=== PATIENT | female | born 1990 | race Caucasian/White ===

== ENCOUNTER 2021-08-27 18:32 | Emergency (ER) | payer MEDICAID, SELFPAY ==
--- NOTE | ~2021-08-27 | CT_ITS ---
EXAMINATION: CT HEAD WITHOUT CONTRAST CLINICAL INFORMATION: Migraine. Right facial and arm tingling. COMPARISON: None TECHNIQUE: Contiguous axial imaging was performed from the skull base to vertex without intravenous administration of contrast. This CT examination was performed using dose optimization techniques as appropriate, variously including the following: *Automated exposure control *Adjustment of mA and/or kV according to patient size (this includes techniques or standardized protocols for targeted exams where dose is matched to indication/reason for exam; i.e. extremities or head) *Use of iterative reconstruction technique DLP: 566 mGy-cm FINDINGS: There is no evidence of acute intracranial hemorrhage or territorial infarction. No abnormal mass effect or midline shift is seen. Lynn to white matter differentiation is well preserved. No extra-axial fluid collections are identified. The ventricles are normal in size. There is no abnormal attenuation within the brain parenchyma. The osseous structures and soft tissues are normal. The mastoid air cells and visualized portions of the paranasal sinuses are well aerated. CT/CT head/brain wo con IMPRESSION: No acute intracranial pathology.
[2021-08-27 20:44] VITALS: BP 131/87; PULSE 77; RESP 16; TEMP 37.1; O2SAT 97; BMI 29.7
--- NOTE | 2021-08-27 23:28 | ED.HA ---
HPI - Headache General Chief Complaint: Headache Stated Complaint: headache h/o migraines Time Seen by Provider: 08/27/21 23:22 Source: patient Mode of arrival: ambulatory Limitations: language barrier History of Present Illness HPI Narrative: 31-year-old female presents with left-sided migraine for 1 week accompanied with nausea, facial and hand tingling on the left side. States that she normally has migraines on a regular basis however this facial and hand tingling is new. She has been taking her medications with poor affect. MD elicited complaint: headache and migraine Pertinent past history: migraines Onset (ago): week(s) (1) Onset description: gradually Location: left Severity: severe Pain scale (0-10): 9 Quality & Timing: throbbing, constant, progressively worsening and different than previous headaches Exacerbating factors: none Relieving factors: nothing Context: occurred at rest Associated symptoms: tingling and numbness Treatments prior to arrival: acetaminophen, ibuprofen and migraine medication Related Data Previous Rx's Medication Instructions Recorded ywwrokword-fpdsofugsjtza-nobrkzxd 1 cap PO Q4-6H PRN #10 cap 08/28/21 50 mg-300 mg-40 mg capsule (Fioricet) Allergies Allergy/AdvReac Type Severity Reaction Status Date / Time No Known Allergies Allergy Verified 08/27/21 20:48 Review of Systems Review of Systems: Constitutional: No Fever, No Chills, positive headache ENT/Mouth: No Ear Pain, No Hoarseness, No sore throat Eyes: No Eye Pain, No Swelling, No Redness, No Foreign Body Cardiovascular: No Chest Pain, No SOB Respiratory: No Cough, No Dyspnea Gastrointestinal: No Nausea, No Vomiting, No Diarrhea, No abdominal Pain Genitourinary: No Dysuria, No Hematuria Musculoskeletal: positive joint pain, No Myalgias, No Joint Swelling Skin: No Skin lacerations, No rash Neuro: No Weakness, positive Numbness, positive Paresthesias, No Loss of Consciousness, No Dizziness, positive Headache Psych: No Anxiety/Panic, No Depression Heme/Lymph: no easy bruising, no Lymphadenopathy Endocrine: No Polyuria, No Polydipsia Yes all other systems are reviewed and are negative PMFSH Past Medical History Attestation statement: The following information was validated with the patient. Source: old records reviewed Medical History Migraines Social History Social History Advance Directives: No Patient : No Physical Exam Vital Signs: Vital Signs: Last Vital Signs Temp 98.1 F 08/28/21 00:53 Pulse 62 08/28/21 00:53 Resp 12 08/28/21 00:53 BP 119/71 08/28/21 00:53 Pulse Ox 100 08/28/21 00:53 BMI result Body Mass Index 29.7 Appearance: Alert. Oriented X3. No acute distress. Eyes: Pupils equal, round and reactive to light. Sclera nonicteric. ENT: Pharynx normal. Neck: Normal inspection. Neck supple. No vertebral tenderness. No nuchal rigidity. CVS: Normal heart rate and rhythm. Pulses normal. Respiratory: No respiratory distress. Breath sounds normal. Abdomen: Soft and nontender. Skin: Skin warm and dry. Normal skin color. Normal skin turgor. Extremities: No lower extremity edema. Moves all extremities against resistance. Gait well-balanced well coordinated. Neuro: No motor deficit. No sensory deficit. Cranial nerves 2-12 intact. NIH Stroke Scale Internal: Initial- Upon Arrival Level of Consciousness: Alert Level of Consciousness Questions: Answers both questions correctly Level of Consciousness Commands: Performs both tasks correctly Best Gaze: Normal Visual: No visual loss Facial Palsy: Normal Motor Arm (Right): No drift Motor Arm (Left): No drift Motor Leg (Right): No drift Motor Leg (Left): No drift Limb Ataxia: Absent Sensory: Normal Best Language: No aphasia Dysarthia: Normal Extinction and Inattention: No abnormality Score: 0 Course Course Course Narrative: 31-year-old female presents with 1 week of migraine. Has been taking her medications Topamax and ndmh-spi-fkyladh medications with poor effect. States that she has some left-sided facial and left arm tingling and numbness but has no focal neural deficits. NIH stroke scale is 0. States that this is new for her. Patient is afebrile. No nuchal rigidity or indication of meningitis. Negative Romberg. Patient is afebrile and appears nontoxic. Focal neural deficits. Will order CT scan of head. Will order UA, U preg, antiemetic, pain management with Toradol and Imitrex. 00:13 urinalysis negative, U preg negative. 00:20 CT scan head negative for acute findings requiring emergent intervention. Will discharge home with prescription for Fioricet. Patient does not recall the name of her primary care physician but does understand that she must follow-up with them. I did refer to neurology for persistent migraines. parts interpreter utilized for all correspondence. Google translate utilized for discharge instructions. Patient verbalized understanding of and agrees to plan of care to discharge home. Verbalized understanding of signs and symptoms indicating need for emergent intervention MDM - Headache Differential Diagnosis Differential diagnosis: Likely migraine, tension headache, subarachnoid hemorrhage, headache and sinusitis Medical Records Attestation: I reviewed the patient's medical records. Lab Data Attestation: I reviewed the patient's lab results. Labs: Lab Results 08/27/21 08/27/21 08/27/21 Range/Units 23:41 23:41 23:55 Urine Color YELLOW Urine Appearance HAZY Urine pH 5.5 (5.0-8.0) Ur Specific [place] 1.025 (1.005-1.025) Urine Protein NEG (NEG-TRACE) MG/DL Urine Glucose (UA) NEG (NEG) MG/DL Urine Ketones NEG (NEG) MG/DL Urine Blood NEG (NEG) Urine Nitrite NEG (NEG) Ur Leukocyte Esterase NEG (NEG) Urine Test NEGATIVE (NEGATIVE) Influenza Type A (PCR) NEGATIVE (Negative) Influenza Type B (PCR) NEGATIVE (Negative) RSV RNA Qual (PCR) NEGATIVE (Negative) SARS-CoV-2 RNA (RT-PCR) NEGATIVE (Negative) Imaging Data CT scan - head: Attestation: I personally reviewed and interpreted this imaging study as follows: Radiologist's impression: EXAMINATION: CT HEAD WITHOUT CONTRAST CLINICAL INFORMATION: Migraine. Right facial and arm tingling.? COMPARISON: None TECHNIQUE: Contiguous axial imaging was performed from the skull base to vertex without intravenous administration of contrast. This CT examination was performed using dose optimization techniques as appropriate, variously including the following: *Automated exposure control *Adjustment of mA and/or kV according to patient size (this includes techniques or standardized protocols for targeted exams where dose is matched to indication/reason for exam; i.e. extremities or head) *Use of iterative reconstruction technique DLP: 566 mGy-cm FINDINGS: There is no evidence of acute intracranial hemorrhage or territorial infarction. No abnormal mass effect or midline shift is seen. Lynn to white matter differentiation is well preserved. No extra-axial fluid collections are identified. The ventricles are normal in size. There is no abnormal attenuation within the brain parenchyma. The osseous structures and soft tissues are normal. The mastoid air cells and visualized portions of the paranasal sinuses are well aerated. ? CT/CT head/brain wo con IMPRESSION: No acute intracranial pathology. Discharge Plan Discharge Clinical Impression: Migraine Patient Disposition: Home, Self-Care Instructions: Migraine Headache (ED) Additional Instructions: Le evaluaron por migra?a. Le recetamos Fioricet. Novi omi medicamento seg?n las indicaciones. Seguimiento con el m?dico de atenci?n primaria esta semana. Puede considerar la consulta de Neurolog?a si las migra?as persisten. La tomograf?a computarizada de la devi es negativa para hallazgos agudos que requieren alexis intervenci?n urgente. Edgar por elegir omi departamento de emergencias para al evaluaci?n. Por favor, lucie un seguimiento con el m?dico de atenci?n primaria seg?n sea necesario. Regrese al departamento de emergencias por cualquier s?ntoma nuevo, preocupante o que empeore. You were evaluated for migraine headache. We prescribed Fioricet. Please take this medication as directed. Follow-up with primary care physician this week. You may consider Neurology consult if migraines persist. CT scan of head is negative for acute findings requiring emergent intervention. Thank you for choosing this emergency department for evaluation. Please follow-up with primary care physician as needed. Return to the emergency department for any new, concerning, or worsening symptoms. Prescriptions: New ixzbjbbqnn-zwpgcjpcwqipv-momd [Fioricet] 50-300-40 mg capsule 1 cap PO Q4-6H PRN (Reason: migraine headache) Qty: 10 0RF Referrals: Aura Miranda MD [Physician] - (Persistent migraines)
[2021-08-27 23:46] LABS: Appearance Urine HAZY; Color Urine YELLOW; Glucose Urine UA NEG (NEG); Leukocyte Esterase Urine NEG (NEG); Nitrite Urine NEG (NEG); PH 5.5 (5.0-8.0); Specific Gravity - Urine 1.025 (1.005-1.025); Urine Blood NEG (NEG); Urine Ketones NEG (NEG); Urine Protein NEG (NEG-TRACE)
[2021-08-27] MEDS: ondansetron HCL 4 MG/2 ML VIAL IVPUSH (23:46)
[2021-08-27 23:48] LABS: UPreg QC Valid YES; Urine Pregnancy NEGATIVE (NEGATIVE)
[2021-08-27] MEDS: diphenhydrAMINE HCL 50 MG/ML VIAL 12.5 MG IVPUSH (23:48)
[2021-08-27] MEDS: Ketorolac Tromethamine 30 MG/ML VIAL IVPUSH (23:49)
[2021-08-27] MEDS: SUMAtriptan succinate 6 MG/0.5 ML VIAL SUBCUT (23:53)
[2021-08-28 00:35] LABS: Influenza A PCR NEGATIVE (Negative); Influenza B PCR NEGATIVE (Negative); Resp Syncy Virus RNA Qual PCR NEGATIVE (Negative); SARS COV2 PCR INHOUSE NEGATIVE (Negative)
[2021-08-28 00:53] VITALS: BP 119/71; PULSE 62; RESP 12; TEMP 36.7; O2SAT 100
== END 2021-08-28 01:18 | disposition home or self-care (01) ==
PROVIDERS: Nurse Practitioner Family; Emergency Provider Emergency Medicine
DX: G43.909 Migraine, unspecified, not intractable, without status migrainosus (principal); Z20.822 Contact with and (suspected) exposure to COVID-19
CPT/HCPCS: 0241U; 70450; 81003; 81025; 96372; 96374; 96375; 99283; 99284; J1200; J1885; J2405; J3030

== ENCOUNTER 2021-10-25 14:23 | Outpatient (REF) | payer MEDICAID, SELFPAY ==
[2021-10-25 18:44] LABS: CT PCR NOT DETECTED (Not Detect.); NG PCR NOT DETECTED (Not Detect.)
[2021-10-26 09:52] LABS: BV Int Neg Control Negative (Negative); BV Int Pos Control Positive (Positive)
[2021-11-05 11:02] LABS: HPV 16 RNA NOT DETECTED (NOT DETECTED); HPV mRNA E6/E7 rflx Detected (Not Detected)
== END 2021-10-25 14:24 | disposition home or self-care (01) ==
LOC: HO.LAB 14:23
PROVIDERS: Visit Provider Advanced Practice Midwife
DX: Z01.419 Encounter for gynecological examination (general) (routine) without abnormal findings (principal); Z11.3 Encounter for screening for infections with a predominantly sexual mode of transmission; Z11.51 Encounter for screening for human papillomavirus (HPV)
CPT/HCPCS: 87480; 87491; 87510; 87591; 87624; 87625; 87660; 88142

== ENCOUNTER 2022-04-24 21:49 | Emergency (ER) | payer MEDICAID, SELFPAY ==
--- NOTE | 2022-04-24 | ECG_ITS ---
Test Reason : CHEST PAIN Blood Pressure : / mmHG Vent. Rate : 072 BPM Atrial Rate : 072 BPM P-R Int : 138 ms QRS Dur : 094 ms QT Int : 380 ms P-R-T Axes : 061 038 099 degrees QTc Int : 416 ms Normal sinus rhythm with sinus arrhythmia T wave abnormality, consider anterolateral ischemia Abnormal ECG No previous ECGs available Referred By: Generic ED Physician Electronically Signed By:NICOLE BAUER MD
--- NOTE | ~2022-04-24 | XR_ITS ---
EXAMINATION: XR CHEST CLINICAL INFORMATION: Chest pain COMPARISON: None TECHNIQUE: Frontal view of the chest was obtained. FINDINGS: Normal appearance of the cardiomediastinal structures. No effusions or pneumothoraces. No focal pulmonary consolidation. Normal pattern of pulmonary vasculature. Presumed cholecystectomy clips noted in the right upper abdominal quadrant. XR/XR chest 1V IMPRESSION: No acute cardiopulmonary abnormalities. Lungs clear.
[2022-04-24 21:58] VITALS: BP 142/84; PULSE 68; RESP 16; TEMP 36.4; O2SAT 99; BMI 29.9
[2022-04-24 22:55] LABS: MANUAL DIFF FLAG NO
[2022-04-24 22:57] LABS: Basophils Percent Auto 0.3 % (0-2); Eosinophils Percent Auto 0.4 % (0-4); Hemoglobin 12.9 g/dl (12.0-16.0); Imm Gran Abs Auto 0.02 X10*3/uL (0.00-0.03); Imm Gran Pct Auto 0.2 % (0.0-0.4); Lymphocytes Absolute Auto 1.3 X10*3/uL (1.2-4.9); Lymphocytes Percent Auto 14.6 % (20-40); Mean Corpuscular HGB Conc 30.7 g/dl (31.0-35.0); Mean Corpuscular Hemoglobin 25.9 pg (27.0-33.0); Mean Corpuscular Volume 84.3 fL (80.0-98.0); Monocytes Absolute Auto 0.5 X10*3/uL (0.1-1.2); Monocytes Percent Auto 5.2 % (2-11); Neutrophils Absolute Auto 7.1 x10*3/uL (2.0-8.3); Neutrophils Percent Auto 79.3 % (45-73); Platelet Count 340 X10*3/uL (160-400); Red Blood Count 4.98 X10*6/uL (4.20-5.50); Red Cell Distribution Width 15.9 % (11.0-16.0)
[2022-04-24 23:13] LABS: Alanine Aminotransferase 76 U/L (0-31); Albumin Level 4.2 g/dL (3.5-5.0); Alkaline Phosphatase 95 U/L (39-117); Anion Gap 15 (12-20); Aspartate Amino Transferase 109 U/L (5-31); Blood Urea Nitrogen 12 mg/dL (9-16); Calcium 9.1 mg/dL (8.4-10.2); Carbon Dioxide 21 mmol/L (22-29); Chloride 108 mmol/L (96-108); Creatinine Clr Calc Pharmacy 118.3; Estimated Glomerular Filt Rate > 60; Glucose Random 97 mg/dL (60-115); Potassium 3.5 mmol/L (3.3-5.1); Sodium 140 mmol/L (135-145); Total Protein 7.3 g/dL (6.5-8.0)
[2022-04-24 23:18] LABS: Troponin-I High Sensitivity < 3.5 ng/L (<3.5-17.0)
[2022-04-25 00:08] VITALS: TEMP 36.6
[2022-04-25 00:46] VITALS: BP 119/67; PULSE 66; RESP 16; TEMP 36.5; O2SAT 98
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
[2022-04-25 01:33] VITALS: BP 120/73; PULSE 74; RESP 16; TEMP 36.4; O2SAT 98
[2022-04-25 01:37] LABS: Bilirubin Total 0.7 mg/dL (0.0-1.0)
[2022-04-25] MEDS: Ibuprofen 600 MG TABLET PO (01:50)
[2022-04-25 01:51] LABS: D Dimer High Sensitivity < 150 NG/ML
--- NOTE | 2022-04-25 02:02 | PC.NURSE ---
Discharge instructions reviewed with pt. Pt verbalizes understanding.
[2022-04-25 02:04] LABS: Troponin-I High Sensitivity < 3.5 ng/L (<3.5-17.0)
== END 2022-04-25 02:03 | disposition home or self-care (01) ==
PROVIDERS: Emergency Provider Emergency Medicine
DX: R07.89 Other chest pain (principal); F41.1 Generalized anxiety disorder; F43.0 Acute stress reaction; Z79.899 Other long term (current) drug therapy
CPT/HCPCS: 36415; 71045; 80053; 84484; 85025; 85379; 93005; 99283; 99284

== ENCOUNTER 2022-08-01 13:24 | Outpatient (REF) | payer MEDICAID, SELFPAY ==
--- NOTE | 2022-08-01 09:15 | EMG_ITS ---
Left tibial and peroneal motor studies were performed. Left superficial peroneal and sural sensory studies were performed. Tibial H-reflex was obtained. Left median and ulnar motor and sensory studies were performed. Radial and sensory study was performed and paraspinal muscles were tested in left cervical and lumbar areas. IMPRESSION: Other than mild left superficial peroneal sensory neuropathy, no significant abnormality noted on this study. MD LACIE Swift/BESSY / [id number]
== END 2022-08-01 13:25 | disposition home or self-care (01) ==
LOC: HO.NEURO 13:24
PROVIDERS: PCP Registered Nurse; Visit Provider Registered Nurse
DX: R20.0 Anesthesia of skin (principal); R20.2 Paresthesia of skin
CPT/HCPCS: 95886; 95912

== ENCOUNTER 2022-09-11 08:30 | Emergency (ER) | payer MEDICAID, SELFPAY ==
[2022-09-11 08:47] VITALS: BP 135/86; PULSE 75; RESP 12; TEMP 36.7; O2SAT 100; BMI 25.8
--- NOTE | 2022-09-11 09:32 | ED_ITS ---
HPI - General Adult General Chief complaint: Back Pain/Injury Stated complaint: back pain Time Seen by Provider: 09/11/22 09:31 Source: patient and manager web Mode of arrival: ambulatory Limitations: language barrier History of Present Illness HPI narrative: Patient is a 32 year old assigned female at with no reported medical history presenting to the emergency department today with back pain. Patient states that this back pain has been present and intermittent over the last month. Patient states that she saw her PCP who gave her some cream and patches but those did not help. Patient denies any dizziness, lightheadedness, abdominal pain, nausea, vomiting, fever, chills, blurry vision, double vision, loss of vision, chest pain, difficulty breathing, shortness of breath, night sweats, pain with urination, increased urinary frequency, increased urinary urgency, blood in her urine or stool, syncope or a near syncopal episode, recent trauma or falls, bowel incontinence, bladder incontinence, bowel retention, bladder retention, or any other complaints at this time. Onset (ago): month(s) (1) Location: back Radiation: non-radiation Severity: mild Severity scale (1-10): 3 Quality: dull Pain Consistency: intermittent Relieving factors: none Exacerbating factors: none Associated symptoms: denies other symptoms Treatments prior to arrival: other (patches and cream) Related Data Home Medications Medication Instructions Recorded Confirmed omeprazole 40 mg capsule,delayed 40 mg PO DAILY 10/25/21 10/25/21 release sertraline 50 mg tablet 50 mg PO DAILY 10/25/21 10/25/21 topiramate 100 mg tablet 100 mg PO DAILY 10/25/21 10/25/21 Previous Rx's Medication Instructions Recorded efjtvvbppc-ytwwheqgllmin-butohczn 1 cap PO Q4-6H PRN migraine 08/28/21 50 mg-300 mg-40 mg capsule headache #10 caps (Fioricet) fluconazole 150 mg tablet 150 mg PO DAILY 1 dose #1 tab 10/30/21 (Diflucan) metronidazole 500 mg tablet 500 mg PO BID 7 days #14 tabs 10/30/21 cyclobenzaprine 5 mg tablet 5 mg PO TID PRN back pain 7 days 09/11/22 #21 tabs naproxen 500 mg tablet 500 mg PO BID 7 days #14 tabs 09/11/22 prednisone 20 mg tablet 20 mg PO DAILY 7 days #7 tabs 09/11/22 Allergies Allergy/AdvReac Type Severity Reaction Status Date / Time No Known Allergies Allergy Verified 10/25/21 13:38 Review of Systems Constitutional: Constitutional: Reports no additional constitutional complaints, Denies chills, Denies fever(s) and Denies night sweats Eyes: Eyes: Reports no additional eye complaints, Denies blurry vision, Denies change in vision, Denies diplopia, Denies eye discharge, Denies loss of vision and Denies eye pain ENT: Denies dizziness Cardiovascular: Cardiovascular: Reports no additional cardiovascular complaints, Denies chest pain, Denies lightheadedness, Denies Loss of Consciousness and Denies dyspnea Respiratory: Respiratory: Reports no additional respiratory complaints and Denies dyspnea Gastrointestinal: Gastrointestinal: Reports no additional gastrointestinal complaints, Denies abdominal pain, Denies melena, Denies hematochezia, Denies change in bowel habits and Denies change in stool character Genitourinary: Genitourinary: Denies hematuria, Denies urinary frequency, Denies dysuria, Denies urinary incontinence, Denies urinary hesitancy and Denies urinary urgency Musculoskeletal: Musculoskeletal: Reports no additional musculoskeletal complaints, Reports back pain, Denies numbness and Denies tingling Neurologic: Denies dizziness, Denies loss of vision, Denies numbness and Saad es tingling Psychiatric: Psychiatric: Reports no additional psychiatric complaints Endocrine: Endocrine: Reports no additional endocrine complaints Hematologic/Lymphatic: Hematologic/Lymphatic: Reports no additional hematologic/lymphatic complaints Allergic/Immunologic: Allergic/Immunologic: Reports no additional allergic/immunologic complaints [facility] Past Medical History Attestation statement: The following information was validated with the patient. Source: old records reviewed and nursing notes reviewed Medical History Depression Migraines Surgical History H/O LEEP H/O tubal ligation Hx of cholecystectomy Social History Social History Patient Tobacco Use Status: Never used Tobacco Advance Directives: No Physical Exam ED Vital Signs: Vital Signs - 24 hr 09/11/22 08:47 Temperature 98.1 F Pulse Rate 75 Respiratory Rate 12 Blood Pressure 135/86 Pulse Oximetry 100 Oxygen Delivery Method Room Air BMI result Body Mass Index 25.8 Const General: cooperative, no acute distress, alert and awake Nutritional Appearance: well nourished Orientation/consciousness: patient oriented x3 Limitations: no limitations HENMT Head: Yes normal to inspection and Yes atraumatic Ears: hearing grossly normal bilaterally and external ears normal General nose exam: Normal external nose present, no nasal discharge noted and no epistaxis Face and sinus: Yes normal facial exam, No abrasion and No laceration Mouth: Normal oral and palatal mucosa present, no drooling and no muffled voice Eyes General: appearance normal, both eyes and all related structures Periorbital: periorbital findings normal Eyelids: Yes eyelids normal Conjunctivae: conjunctivae normal Pupils: Equal, round and reactive pupils present EOM: EOMs intact bilaterally Neck Neck: Yes normal visual inspection, Yes full ROM and Yes no lymphadenopathy Chest Chest palpation & inspection: normal inspection of the chest Resp Effort & Inspection: normal respiratory effort and able to speak in complete sentences Auscultation: clear to auscultation bilaterally Cardio Rate: regular rate Rhythm: regular rhythm GI Inspection: Yes normal to inspection Palpation (GI): Soft to palpation, not firm, nontender and no guarding General: Yes no CVA tenderness Back/Spine/Pelvis Back: no CVA tenderness Cervical Spine: normal cervical lordosis and cervical ROM normal Thoracic/Lumbar Spine: thoraco-lumbar ROM normal Neuro General: patient oriented x3 and moves all extremities Cranial nerves: Yes Equal, round and reactive pupils present Cognition (Neuro): normal cognition Motor exam (neuro): 5/5 motor strength present throughout Sensory Exam: Normal double simultaneous stimulation for sensation Coordination: [id number]-no-thrc test normal Extrem General: Yes normal to inspection, Yes full ROM and Yes capillary refill normal Psych Appearance: grossly normal Mental Status: mental status grossly normal Affect: normal affect Attitude: cooperative Thought process: Normal thought process present Thought content: Normal thought content present Insight: Good insight present (Psych) Medications Administered Discontinued Medications Generic Name Dose Route Start Last Admin Trade Name Freq PRN Reason Stop Dose Admin Cyclobenzaprine HCl 5 mg 09/11/22 09:38 09/11/22 10:04 Cyclobenzaprine Hcl 5 Mg Tablet PO 09/11/22 09:39 5 mg ONCE ONE Administration Ketorolac Tromethamine 15 mg 09/11/22 09:38 09/11/22 10:04 Ketorolac Tromethamine 15 Mg/Ml Vial IM 09/11/22 09:39 15 mg ONCE ONE Administration Prednisone 20 mg 09/11/22 09:38 09/11/22 10:04 Prednisone 20 Mg Tablet PO 09/11/22 09:39 20 mg ONCE ONE Administration Medical Decision Making Medical Decision Making MDM Narrative: Patient is a 32 year old assigned female at with no reported medical history presenting to the emergency department today with back pain. Patient's physical exam was unremarkable. I explained my physical exam findings to the patient. Patient's clinical presentation is most consistent with mechanical back pain. I answered all questions asked by the patient. Patient received IM Toradol, PO Flexeril, and PO Prednisone which she stated helped her pain significantly. I stressed the importance of the patient taking her medication as prescribed. I stressed the importance of the patient following up with her primary care provider and a offender job retention specialist. I stressed the importance of the patient returning to the emergency department immediately if her symptoms were to worsen or if she were to develop any dizziness, shortness of breath, difficulty breathing, chest pain, blurry vision, loss of vision, nausea, vomiting, abdominal pain, fever, chills, back pain, or any other complaints. Patient verbalized agreement and understanding with this treatment plan and discharge. Differential Diagnosis Differential Diagnoses: The differential diagnosis associated with the presentation includes back pain, mechanical back pain Discharge Plan Discharge Clinical Impression: Back pain Patient Disposition: Home, Self-Care Instructions: Back Pain (ED) Additional Instructions: Follow up with your primary care provider and a offender job retention specialist. Return to the emergency department immediately if your symptoms worsen or if you develop any dizziness, shortness of breath, difficulty breathing, chest pain, blurry vision, loss of vision, nausea, vomiting, abdominal pain, fever, chills, back pain, or any other complaints. Rico un seguimiento con al proveedor de atenci?n primaria y un especialista en [place] vertebral. Regrese al departamento de emergencias de inmediato si zak s?ntomas empeoran o si presenta mareos, falta de aire, dificultad para respirar, dolor de pecho, visi?n borrosa, p?rdida de la visi?n, n?useas, v?mitos, dolor abdominal, fiebre, escalofr?os, dolor de espalda o cualquier otras quejas. Prescriptions: New prednisone 20 mg tablet 20 mg PO DAILY 7 Days Qty: 7 0RF naproxen 500 mg tablet 500 mg PO BID 7 Days Qty: 14 0RF cyclobenzaprine 5 mg tablet 5 mg PO TID PRN (Reason: back pain) 7 Days Qty: 21 0RF No Action metronidazole 500 mg tablet 500 mg PO BID 7 Days Qty: 14 0RF Rx Instructions: Take with food, Avoid alcohol and vinegar products fluconazole [Diflucan] 150 mg tablet 150 mg PO DAILY Qty: 1 0RF Rx Instructions: administer on day 1 of therapy qukqexxvzu-stufdzmmocdqu-kvyx [Fioricet] 50-300-40 mg capsule 1 cap PO Q4-6H PRN (Reason: migraine headache) Qty: 10 0RF topiramate 100 mg tablet 100 mg PO DAILY sertraline 50 mg tablet 50 mg PO DAILY omeprazole 40 mg capsule,delayed release(DR/EC) 40 mg PO DAILY Referrals: [facility] [Provider Group] (Call to establish and follow up with a offender job retention specialist. Llame para establecer y hacer un seguimiento con alexis especialista en [place] vertebral.) Yamileth Parks FNP [Primary Care Provider] - Interventions: ED Discharge Assessment Last Done: 09/11/22 10:06 Discharge Date/Time: 09/11/22 10:06 Print Language: Kiswahili
[2022-09-11] MEDS: Ketorolac Tromethamine 15 MG/ML VIAL IM (10:04)
[2022-09-11] MEDS: predniSONE 20 MG TABLET PO (10:04)
[2022-09-11] MEDS: Cyclobenzaprine HCl 5 MG TABLET PO (10:04)
== END 2022-09-11 10:06 | disposition home or self-care (01) ==
PROVIDERS: Emergency Provider Emergency Medicine; PCP Registered Nurse
DX: M54.50 Low back pain, unspecified (principal); Z79.899 Other long term (current) drug therapy
CPT/HCPCS: 96372; 99283; 99284; J1885

== ENCOUNTER 2025-04-07 09:26 | Outpatient (REF) | payer MEDICAID, SELFPAY ==
[2025-04-07 11:16] LABS: MANUAL DIFF FLAG NO
[2025-04-07 11:20] LABS: Hematocrit 38.6 % (37.0-47.0); Hemoglobin 11.3 g/dl (12.0-16.0); Imm Gran Abs Auto 0.04 X10*3/uL (0.00-0.03); Imm Gran Pct Auto 0.5 % (0.0-0.4); Lymphocytes Absolute Auto 2.2 X10*3/uL (1.2-4.9); Mean Corpuscular HGB Conc 29.3 g/dl (31.0-35.0); Mean Corpuscular Hemoglobin 24.2 pg (27.0-33.0); Mean Corpuscular Volume 82.7 fL (80.0-98.0); NRBC Abs Auto 0.000 X10*3/uL (0.0-0.012); NRBC Pct Auto 0.0 /100WBC (0.0-0.2); Platelet Count 372 X10*3/uL (160-400); Red Blood Count 4.67 X10*6/uL (4.20-5.50); White Blood Count 8.1 X10*3/uL (4.8-10.8)
[2025-04-07 12:23] LABS: Alanine Aminotransferase 35 U/L (0-31); Albumin Level 4.1 g/dL (3.5-5.0); Alkaline Phosphatase 63 U/L (39-117); Anion Gap 11 (12-20); Aspartate Amino Transferase 23 U/L (5-31); Blood Urea Nitrogen 11 mg/dL (9-16); Calcium 9.1 mg/dL (8.4-10.2); Carbon Dioxide 28 mmol/L (22-29); Chloride 107 mmol/L (96-108); Cholesterol 182 mg/dL (<200); Estimated Glomerular Filt Rate > 60; HBS Num1 0.85 mIU/mL (0-7.99); HBc Num1 0.20 S/CO (0.00-0.79); HBsAGNum1 0.39 S/CO (0.00-0.99); HDL Cholesterol 37 mg/dL (>40); Hepatitis B Surface Antigen Negative (Negative); Potassium 4.4 mmol/L (3.3-5.1); Sodium 142 mmol/L (135-145); Total Protein 7.4 g/dL (6.5-8.0); Triglycerides 273 mg/dL (<150); ~Hepatitis B Surface Antibody NONREACTIVE (Nonreactive)
== END 2025-04-07 09:27 | disposition home or self-care (01) ==
LOC: HO.HHCL 09:26
PROVIDERS: PCP Registered Nurse; Visit Provider Registered Nurse
DX: Z00.00 Encounter for general adult medical examination without abnormal findings (principal); Z11.59 Encounter for screening for other viral diseases
CPT/HCPCS: 36415; 80053; 80061; 83036; 84443; 85025; 86704; 86706; 87340